=== PATIENT | female | born 1960 | race Caucasian/White ===

== ENCOUNTER 2018-11-07 11:49 | Outpatient (CLI) | payer MEDICAID, SELFPAY ==
[2018-11-07 12:23] LABS: HCT 37.1 % (36.0-46.0); HGB 12.3 g/dL (12.0-15.5); Mean Corp. HGB Concentration 33.2 g/dL (32.0-36.0); Mean Corpuscular Hemoglobin 28.2 pg (27.0-33.0); Mean Corpuscular Volume 85.1 fL (80-95); Mean Platelet Volume 9.5 fL (8.0-11.0); Platelet Count 237 x1000/uL (130-400); RBC 4.36 m/cumm (4.00-5.20); RBC Distribution Width 13.5 % (11.7-14.6); White Blood Cell Count 6.16 k/cumm (4.4-10.8)
[2018-11-07 13:07] LABS: ALT 23 U/L (12-78); AST 17 U/L (15-37); Albumin 3.2 g/dL (3.4-5.0); Alkaline Phosphatase 82 U/L (46-116); Anion Gap 6.7 mmol/L (3-11); BUN 14 mg/dL (7-18); Bilirubin, Total 0.4 mg/dL (0.2-1.0); CO2 30.3 mmol/L (21.0-32.0); CREATININE 1.12 mg/dL (0.55-1.02); Calcium 9.2 mg/dL (8.5-10.1); Chloride 102 mmol/L (98-107); Estimated GFR 50.51 (mL/min/1.73m2); Glucose 100 mg/dL (70-100); Potassium 3.9 mmol/L (3.5-5.1); Sodium 139 mmol/L (136-145); TSH (W/Ref FT4) 4.23 uIU/mL (0.358-3.74); Total Protein 6.9 g/dL (6.4-8.2)
[2018-11-07 13:35] LABS: FREE T4 1.13 ng/dL (0.76-1.46)
== END 2018-11-07 12:09 ==
PROVIDERS: PCP Family Medicine; Visit Provider Family Medicine
DX: F32.9 Major depressive disorder, single episode, unspecified (principal); M54.6 Pain in thoracic spine; G89.4 Chronic pain syndrome
CPT/HCPCS: 36415; 80053; 85027; 84439; 84443

== ENCOUNTER 2019-02-16 09:55 | Day surgery (SDC) | payer MEDICAID, SELFPAY ==
[2019-02-16 10:03] VITALS: BP 135/75; PULSE 90; RESP 18; TEMP 36.6; O2SAT 96
[2019-02-16] MEDS: Lactated Ringers 1,000 ML 80 ML IV (10:29)
[2019-02-16] MEDS: CLINDAMYCIN 600 MG/50 ML BAG 100 MG IVPB (11:33)
[2019-02-16] MEDS: Lidocaine 1% Multi-Dose 50 ML VIAL (11:54)
[2019-02-16] MEDS: Sodium Bicarbonate 50 MEQ/50 ML VIAL (11:54)
--- NOTE | 2019-02-16 12:01 | W.PM.DSUDISC ---
Discharge Plan Disposition Patient Disposition: HOME Condition: Good Discharge Details Reason For Visit: R Carpal Tunnel Syndrome Attending Provider: Christofer Cervantes Primary Care Provider: Elsie Cid Home Meds and New Rx's Prescriptions: New acetaminophen 500 mg tablet 1,000 mg PO Q8H PRN (Reason: pain) Qty: 60 RF: 3 ibuprofen 600 mg tablet 600 mg PO TID PRNQty: 30 RF: 3 Continued amitriptyline 100 mg tablet 100 mg PO HS Qty: 90 RF: 12 estradiol [Estrace] 1 mg tablet 1 mg PO DAILY Qty: 90 RF: 4 fluoxetine 20 mg capsule 20 mg PO DAILY Qty: 90 RF: 12 fluticasone propionate 50 mcg/actuation spray,suspension 2 spray NS BID PRN (Reason: allergy symptoms) Qty: 3 RF: 0 levothyroxine 150 mcg tablet 150 mcg PO DAILY Qty: 90 RF: 12 loratadine [Claritin] 10 mg tablet 10 mg PO DAILY Qty: 90 RF: 4 montelukast [Singulair] 10 mg tablet 10 mg PO DAILY Qty: 90 RF: 4 methadone 10 mg tablet 20 mg PO Q12H MDD 2 Qty: 60 RF: 0 NARCOTIC CONTRACT RF: 0 ketotifen fumarate 0.025 % (0.035 %) drops 1 drp Ophthalmic BID PRNRF: 0 Discharge Instructions Stand Alone Forms: Helen Mccann Tunnel Release, DSU Post op Instructions, Marv Hummel (DSU) Referrals: Christofer Cervantes MD [ [facility] STAFF PHYSICIAN] - Equipment/Supplies: Sling Activity:: Elevate Remove Dressings/Wound Care:: 48 hours Shower/Bathe:: 48 hours Diet:: As Tolerated Discharge Orders Discharge Orders: Discharge Order (Routine); Ordered 02/16/19 Ordered By: Christofer Cervantes DS: Diagnosis Discharge Diagnosis (1) Right carpal tunnel syndrome: Status: Acute
[2019-02-16] MEDS: Acetaminophen 325 MG TAB 650 MG PO (12:21)
[2019-02-16 12:30] VITALS: BP 109/59; PULSE 73; RESP 18; TEMP 35.9; O2SAT 100
--- NOTE | 2019-02-16 18:16 | ROE_ITS ---
Date of service: 02/16/19 Time of Service: 13:15 Operative Note DATE OF PROCEDURE: 02/16/19 PRE-OP DIAGNOSIS: Right Carpal Tunnel Syndrome POST-OP DIAGNOSIS: same PROCEDURE: Right Endoscopic Carpal Tunnel Release SURGEON: Christofer Cervantes ANESTHESIA: GETEmily ESTIMATED BLOOD LOSS: 0 PATHOLOGY: none sent TOURNIQUET TIME: 6 COMPLICATIONS: None Patient was transported to: same day Patient's condition: stable Indications: I have seen Mony in clinic for symptoms of carpal tunnel syndrome. The numbness, tingling, and pain limited function. Clinical exam findings with nerve conduction tests confirmed the diagnosis of carpal tunnel syndrome. Nonoperative measures such as bracing, time, activity modifications had been tried but disability and pain persisted. I discussed carpal tunnel release with the patient. I reviewed the risks of the procedure to include, but not limited to, bleeding, infection, pain, stiffness, incomplete release, damage to nerves or vessels, persistent numbness, recurrence. Despite these risks, the patient elected to proceed. Findings: There was tightened carpal tunnel. This was dilated and released successfully with the endoscopic with increased space within the tunnel. The antebrachial fascia was released proximally freeing the median nerve at the wrist. Procedure Description: Mony was greeted in the preoperative holding area where the correct side was identified and marked. The consent was reviewed with the patient and signed. The history and physical was updated. All questions were answered. Mony was taken back to the operating room. The patient was placed into the supine position on the operating room table with the right arm on an arm board. A nonsterile tourniquet was placed high onto the arm. All bony prominences were well padded. Prophylactic antibiotics in the form of cefazolin were administered. The right arm was then prepped with Chloraprep and draped in a standard fashion with stockinette and extremity drape. A timeout to confirm correct identity, side and site, procedure, allergies, anesthesia, and medical concerns was performed. The surgical site was marked in the volar wrist creases in line with the radial border of the fourth ray. This area was anesthetized with approximately 6cc of 1% Lidocaine. The limb was then exsanguinated with an Esmarch. The skin was incised with a 15 blade, approximately 1cm. The skin only was cut and the deeper tissue was dissected bluntly with a tenotomy scissor, avoiding passing nerve and venous structures. The fascia was penetrated and opened bluntly. A two-prong skin hook was placed under this proximal fascial edge. A series of hamate finders were used to identify and dilate the carpal tunnel. Synovial elevator was used to free synovial attachments to the underside of the transverse carpal ligament. My thumb was kept in the palm to shireen the distal extent of the carpal tunnel and correctly position the hand. The Microaire endoscope was inserted without difficulty and without resistance. Excellent visualization showed horizontally running fibers of the transverse carpal ligament (TCL). The distal extent of the TCL was visualized and the end of the scope palpated with the thumb. The blade was elevated and withdrawn from distal to proximal. The TCL was split into two flaps. The endoscope was reinserted to confirm complete release and any remnant ligament was incised. The scope was withdrawn and the proximal aspect of the carpal tunnel was grossly inspected and appeared release with the median nerve visible. The antebrachial fascia at the level of the wrist was then freed from the overlying skin and then the underlying median nerve with blunt dissection. This was transected longitudinally for about 3cm proximal to the wrist incision. The wound was then irrigated with easy flow of irrigant distally and proximally. The incision was closed with a single 4-0 Nylon suture. The wound was dressed with Xeroform, Gauze, Kerlix and Deondre. The tourniquet was deflated with the initial dressing and held with some pressure. Blood flow returned easily to all digits with capillary refill less than 2 seconds. The patient tolerated the procedure well and was returned to the Same Day Surgery area in a stable cond ition suffering no known complication.
== END 2019-02-16 12:44 | disposition home or self-care (01) ==
PROVIDERS: PCP Family Medicine; Visit Provider Student in an Organized Health Care Education/Training Program
PROC: 01N54ZZ Release Median Nerve, Percutaneous Endoscopic Approach (ICD-10-PCS; CPT 29848; principal; 2019-02-16 12:15)
DX: G56.01 Carpal tunnel syndrome, right upper limb (principal)
CPT/HCPCS: 29848; J1885; J2405

== ENCOUNTER 2019-03-07 08:26 | Day surgery (SDC) | payer MEDICAID, SELFPAY ==
[2019-03-07 08:40] VITALS: BP 126/77; PULSE 83; RESP 16; TEMP 36.9; O2SAT 97
[2019-03-07] MEDS: Lactated Ringers 1,000 ML 80 ML IV (09:02)
[2019-03-07] MEDS: CLINDAMYCIN 600 MG/50 ML BAG 100 MG IVPB (09:48)
[2019-03-07] MEDS: Lidocaine 1% Multi-Dose 50 ML VIAL (09:56)
[2019-03-07] MEDS: Sodium Bicarbonate 50 MEQ/50 ML VIAL (09:56)
--- NOTE | 2019-03-07 10:12 | W.PM.DSUDISC ---
Discharge Plan Disposition Patient Disposition: HOME Condition: Good Discharge Details Reason For Visit: Left Carpal Tunnel Attending Provider: Christofer Cervantes Primary Care Provider: Elsie Cid Home Meds and New Rx's Prescriptions: Continued amitriptyline 100 mg tablet 100 mg PO HS Qty: 90 RF: 12 estradiol [Estrace] 1 mg tablet 1 mg PO DAILY Qty: 90 RF: 4 fluoxetine 20 mg capsule 20 mg PO DAILY Qty: 90 RF: 12 fluticasone propionate 50 mcg/actuation spray,suspension 2 spray NS BID PRN (Reason: allergy symptoms) Qty: 3 RF: 0 levothyroxine 150 mcg tablet 150 mcg PO DAILY Qty: 90 RF: 12 loratadine [Claritin] 10 mg tablet 10 mg PO DAILY Qty: 90 RF: 4 montelukast [Singulair] 10 mg tablet 10 mg PO DAILY Qty: 90 RF: 4 methadone 10 mg tablet 20 mg PO Q12H MDD 2 Qty: 60 RF: 0 NARCOTIC CONTRACT RF: 0 ketotifen fumarate 0.025 % (0.035 %) drops 1 drp Ophthalmic BID PRNRF: 0 acetaminophen 500 mg tablet 1,000 mg PO Q8H PRN (Reason: pain) Qty: 60 RF: 3 ibuprofen 600 mg tablet 600 mg PO TID PRNQty: 30 RF: 3 Discharge Instructions Stand Alone Forms: Helen Mccann Tunnel Release, DSU Post op Instructions, Marv Hummel (DSU) Referrals: Christofer Cervantes MD [ [facility] STAFF PHYSICIAN] - Activity:: Elevate Remove Dressings/Wound Care:: 48 hours Shower/Bathe:: 48 hours Diet:: As Tolerated Discharge Orders Discharge Orders: Discharge Order (Routine); Ordered 03/07/19 Ordered By: Christofer Cervantes DS: Diagnosis Discharge Diagnosis (1) Left carpal tunnel syndrome: Status: Acute
--- NOTE | 2019-03-07 10:50 | ROE_ITS ---
Date of service: 03/07/19 Time of Service: 10:48 Operative Note DATE OF PROCEDURE: 03/07/19 PRE-OP DIAGNOSIS: Left Carpal Tunnel Syndrome POST-OP DIAGNOSIS: same PROCEDURE: Left Endoscopic Carpal Tunnel Release SURGEON: Christofer Cervantes ANESTHESIA: MAC ESTIMATED BLOOD LOSS: 0 PATHOLOGY: none sent TOURNIQUET TIME: 6 COMPLICATIONS: None Patient was transported to: same day Patient's condition: stable Indications: I have seen Mony in clinic for symptoms of carpal tunnel syndrome. The numbness, tingling, and pain limited function. Clinical exam findings with nerve conduction tests confirmed the diagnosis of carpal tunnel syndrome. Nonoperative measures such as bracing, time, activity modifications had been tried but disability and pain persisted. She previously had the right side release and was doing well except for some residual numbness at the tip of the index finger. I discussed carpal tunnel release with the patient. I reviewed the risks of the procedure to include, but not limited to, bleeding, infection, pain, stiffness, incomplete release, damage to nerves or vessels, persistent numbness, recurrence. Despite these risks, the patient elected to proceed. Findings: There was tightened carpal tunnel. This was dilated and released successfully with the endoscopic with increased space within the tunnel. The antebrachial fascia was released proximally freeing the median nerve at the wrist. Procedure Description: Mony was greeted in the preoperative holding area where the correct side was identified and marked. The consent was reviewed with the patient and signed. The history and physical was updated. All questions were answered. Mony was taken back to the operating room. The patient was placed into the supine position on the operating room table with the left arm on an arm board. A nonsterile tourniquet was placed high onto the arm. All bony prominences were well padded. Prophylactic antibiotics in the form of clindamycin were administered. The left arm was then prepped with Chloraprep and draped in a standard fashion with stockinette and extremity drape. A timeout to confirm correct identity, side and site, procedure, allergies, anesthesia, and medical concerns was performed. The surgical site was marked in the volar wrist creases in line with the radial border of the fourth ray. This area was anesthetized with approximately 6cc of 1% Lidocaine. The limb was then exsanguinated with an Esmarch. The skin was incised with a 15 blade, approximately 1cm. The skin only was cut and the deeper tissue was dissected bluntly with a tenotomy scissor, avoiding passing nerve and venous structures. The fascia was penetrated and opened bluntly. A two-prong skin hook was placed under this proximal fascial edge. A series of hamate finders were used to identify and dilate the carpal tunnel. Synovial elevator was used to free synovial attachments to the underside of the transverse carpal ligament. My thumb was kept in the palm to shireen the distal extent of the carpal tunnel and correctly position the hand. The Microaire endoscope was inserted without difficulty and without resistance. Excellent visualization showed horizontally running fibers of the transverse carpal ligament (TCL). The distal extent of the TCL was visualized and the end of the scope palpated with the thumb. The blade was elevated and withdrawn from distal to proximal. The TCL was split into two flaps. The endoscope was wade nserted to confirm complete release and any remnant ligament was incised. The scope was withdrawn and the proximal aspect of the carpal tunnel was grossly inspected and appeared release with the median nerve visible. The antebrachial fascia at the level of the wrist was then freed from the overlying skin and then the underlying median nerve with blunt dissection. This was transected longitudinally for about 3cm proximal to the wrist incision. The wound was then irrigated with easy flow of irrigant distally and proximally. The incision was closed with a single 4-0 Nylon suture. The wound was dressed with Xeroform, Gauze, Kerlix and Deondre. The tourniquet was deflated with the initial dressing and held with some pressure. Blood flow returned easily to all digits with capillary refill less than 2 seconds. The patient tolerated the procedure well and was returned to the Same Day Surgery area in a stable condition suffering no known complication.
[2019-03-07 11:01] VITALS: BP 106/61; PULSE 83; RESP 16; TEMP 36.1; O2SAT 97
== END 2019-03-07 11:20 | disposition home or self-care (01) ==
PROVIDERS: PCP Family Medicine; Visit Provider Student in an Organized Health Care Education/Training Program
PROC: 01N54ZZ Release Median Nerve, Percutaneous Endoscopic Approach (ICD-10-PCS; CPT 29848; principal; 2019-03-07 10:15)
DX: G56.02 Carpal tunnel syndrome, left upper limb (principal)
CPT/HCPCS: 29848; J1885

== ENCOUNTER 2019-05-08 13:52 | Outpatient (CLI) | payer MEDICAID, SELFPAY ==
--- NOTE | 2019-05-08 09:05 | DI.RAD_ITS ---
SYMPTOM/DIAGNOSIS: RT SHOULDER PAIN RIGHT SHOULDER: 05/08 Three views were obtained. There is moderate hypertrophic degenerative changes of the acromioclavicular joint. There are also marginal osteophytes of the glenoid and to a lesser extent the humeral head. Cartilaginous joint space of the glenohumeral joint appears fairly well maintained. 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
== END 2019-05-08 14:12 ==
PROVIDERS: PCP Family Medicine; Visit Provider Physician Assistant
DX: M25.511 Pain in right shoulder (principal); M19.011 Primary osteoarthritis, right shoulder
CPT/HCPCS: 73030

== ENCOUNTER 2020-05-06 00:27 | Outpatient (CLI) | payer MEDICAID, SELFPAY ==
--- NOTE | 2020-05-06 | DI.MAMMO_ITS ---
EXAM: MAMMO SCREENING CLINICAL HISTORY: SCREENING, Z12.39 TECHNIQUE: Mammograms were interpreted according to the usual protocol including computer analysis w [employer] CAD system, tomosynthesis and C-view imaging. COMPARISON: 2009 through 2016 FINDINGS: The breasts are composed of mainly fatty density , Breast Density category A. No suspicious masses or suspicious microcalcifications are seen. No skin thickening or abnormal axillary lymph nodes are seen. There has been no significant change from prior exams. IMPRESSION: BI-RADS Category 1, negative. Yearly screening mammography is recommended. Breast Density Category A, fatty density.
== END 2020-05-06 00:47 ==
PROVIDERS: PCP Family Medicine; Visit Provider Family Medicine
DX: Z12.31 Encounter for screening mammogram for malignant neoplasm of breast (principal)
CPT/HCPCS: 77063; 77067

== ENCOUNTER 2020-08-26 18:31 | Outpatient (REF) | payer MEDICAID, SELFPAY ==
[2020-08-26 14:27] LABS: *AMPHETAMINES SCREEN URINE Negative (Negative); *BARBITURATES SCREEN URINE Negative (Negative); *BENZODIAZEPINES SCREEN URINE Negative (Negative); Cannabinoids THC Negative (Negative); Cocaine Screen,Urine Negative (Negative); METHADONE URINE SCREEN Negative (Negative); OPIATES URINE SCREEN Negative (Negative)
[2020-08-26 14:31] LABS: Tricyclic Antidepressants POSITIVE (Negative)
== END 2020-08-26 18:51 ==
LOC: LBN 18:31
PROVIDERS: PCP Family Medicine; Visit Provider Family Medicine
DX: G89.4 Chronic pain syndrome (principal)
CPT/HCPCS: 80307

== ENCOUNTER 2020-08-27 02:40 | Outpatient (CLI) | payer MEDICAID, SELFPAY ==
[2020-08-27 13:41] LABS: Hemoglobin A1C 5.6 % (<5.7)
[2020-08-27 14:22] LABS: ALT 30 U/L (14-59); AST 17 U/L (15-37); Albumin 3.5 g/dL (3.4-5.0); Alkaline Phosphatase 88 U/L (46-116); Anion Gap 6.2 mmol/L (3-11); BUN 16 mg/dL (7-18); Bilirubin, Total 0.5 mg/dL (0.2-1.0); CO2 29.8 mmol/L (21.0-32.0); CREATININE 1.22 mg/dL (0.55-1.02); Calculated LDL 113 mg/dL (<100); Chloride 102 mmol/L (98-107); Cholesterol 177 mg/dL (<200); Estimated GFR 45.43 (mL/min/1.73m2); Glucose 106 mg/dL (74-106); HDL Cholesterol 38 mg/dL (40-60); Potassium 3.7 mmol/L (3.5-5.1); Sodium 138 mmol/L (136-145); TSH (W/Ref FT4) 11.06 uIU/mL (0.36-3.74); Total Protein 6.7 g/dL (6.4-8.2); Triglyceride 133 mg/dL (<150)
[2020-08-27 14:42] LABS: FREE T4 0.68 ng/dL (0.76-1.46)
[2020-09-03 12:12] LABS: Hepatitis C Ab w Rflx HCV PCR Negative (Negative)
== END 2020-08-27 03:00 ==
PROVIDERS: PCP Family Medicine; Visit Provider Family Medicine
DX: E11.9 Type 2 diabetes mellitus without complications (principal); E03.9 Hypothyroidism, unspecified; J45.909 Unspecified asthma, uncomplicated; G89.4 Chronic pain syndrome; Z68.38 Body mass index [BMI] 38.0-38.9, adult; Z00.00 Encounter for general adult medical examination without abnormal findings
CPT/HCPCS: 36415; 80053; 80061; 86803; 83036; 84439; 84443

== ENCOUNTER 2020-10-02 11:58 | Outpatient (CLI) | payer MEDICAID, SELFPAY ==
--- NOTE | 2020-10-02 14:45 | DI.CT_ITS ---
EXAM: CT HEAD WO CLINICAL HISTORY: 5 days of constant headache, R51.9. TECHNIQUE: Imaging Protocol: Axial computed tomography images with coronal and sagittal reformatted images were created and reviewed COMPARISON: No exams were available for comparison FINDINGS: The ventricular system is normal in appearance. No evidence of acute intracranial hemorrhage, mass effect, or midline shift. The orbital structures are unremarkable. The temporal bone structures appear intact. Calvarium: Normal. Visualized Paranasal sinuses/Mastoids: Clear. IMPRESSION: Normal cranial CT. RADIATION DOSE DELIVERED: 815.02mGy.cm Total DLP 815.02mGy.cm Total DLP DATA REPOSITORY: All CT scans at this facility are submitted to the National Radiology Data Registry (NRDR) Dose Index Registry (DIR) with the [employer] (ACR). RADIATION OPTIMIZATION: All CT scans at this facility use at least one of these dose optimization te chniques: automated exposure control; mA and/or kV adjustment per patient size (includes targeted exa ms where dose is matched to clinical indication); or iterative reconstruction.
== END 2020-10-02 12:18 ==
PROVIDERS: PCP Family Medicine; Visit Provider Family Medicine
DX: R51.9 Headache, unspecified (principal)
CPT/HCPCS: 70450

== ENCOUNTER 2021-02-24 09:31 | Outpatient (CLI) | payer MEDICAID, SELFPAY ==
--- NOTE | 2021-02-24 11:30 | DI.RAD_ITS ---
EXAM: XR SHOULDER LT COMPLETE 2+V CLINICAL HISTORY: l shoulder pain M25.512. TECHNIQUE: 2D digital imaging was performed. COMPARISON: May 2019 x-rays FINDINGS: There is no evidence of fracture nor dislocation. No calcifications in the soft tissues and the suba cromial space is not diminished. AC joint exhibits minimal degenerative changes. IMPRESSION: No significant radiographic findings DATA REPOSITORY: RADIATION DOSE DELIVERED:
== END 2021-02-24 09:51 ==
PROVIDERS: PCP Family Medicine; Visit Provider Family Medicine
DX: M25.512 Pain in left shoulder (principal)
CPT/HCPCS: 73030

== ENCOUNTER 2021-08-01 00:45 | Outpatient (CLI) | payer MEDICAID, SELFPAY ==
[2021-08-01 13:00] LABS: ALT 18 U/L (14-59); AST 19 U/L (15-37); Albumin 3.5 g/dL (3.4-5.0); Alkaline Phosphatase 88 U/L (46-116); Anion Gap 6.5 mmol/L (3-11); BUN 22 mg/dL (7-18); Bilirubin, Total 0.5 mg/dL (0.2-1.0); CO2 31.5 mmol/L (21.0-32.0); CREATININE 1.2 mg/dL (0.55-1.02); Calcium 9.2 mg/dL (8.5-10.1); Chloride 104 mmol/L (98-107); Estimated GFR 46.14 (mL/min/1.73m2); Glucose 101 mg/dL (74-106); Potassium 3.6 mmol/L (3.5-5.1); Sodium 142 mmol/L (136-145); TSH (W/Ref FT4) 5.31 uIU/mL (0.36-3.74); Total Protein 6.9 g/dL (6.4-8.2)
[2021-08-01 13:18] LABS: FREE T4 0.83 ng/dL (0.76-1.46)
== END 2021-08-01 00:46 | disposition home or self-care (01) ==
LOC: LOS 00:45
PROVIDERS: PCP Family Medicine; Visit Provider Family Medicine
DX: E03.9 Hypothyroidism, unspecified; N28.9 Disorder of kidney and ureter, unspecified
CPT/HCPCS: 36415; 80053; 84439; 84443

== ENCOUNTER 2021-11-25 15:52 | Inpatient (IN) | payer MEDICAID, SELFPAY ==
[2021-11-25 16:00] VITALS: BP 158/98; PULSE 106; RESP 14; TEMP 36.3; O2SAT 96
--- NOTE | 2021-11-25 16:15 | DI.CT_ITS ---
Exam(s) CT ABDOMEN PELVIS W EXAM: CT ABDOMEN PELVIS W CLINICAL HISTORY: RLQ pain, acute in onset. TECHNIQUE: Imaging Protocol: Axial computed tomography images with coronal and sagittal reformatted images were created and reviewed CONTRAST MATERIAL: Intravenous: Omnipaque 100cc Oral: None COMPARISON: No exams were available for comparison FINDINGS: VISUALIZED LUNG BASES: No nodules nor pleural effusions evident. ABDOMEN: There is no ascites. LIVER: There are no focal hepatic lesions evident . GALLBLADDER/BILIARY: Gallbladder surgically absent. Mild prominence of the biliary tree noted second gayatri to post cholecystectomy status. PANCREAS: No evidence of pancreatic mass nor dilatation of the pancreatic duct. SPLEEN: Spleen size is upper normal. No intrasplenic lesions. Splenic and portal veins are patent. ADRENALS: There are no significant adrenal masses. KIDNEYS:No cysts evident. No solid renal masses. No calculi nor hydronephrosis.. ABDOMINAL AORTA: Abdominal aorta is not enlarged. LYMPH NODES:There is no retroperitoneal nor paraaortic adenopathy. ABDOMINAL WALL: No evidence of significant anterior abdominal wall nor inguinal hernia. GI: No bowel obstruction. No free air. PELVIS: GI: Appendix diameter is 9 millimeters. There is some air remaining and part of the appendix. There is very minimal periappendiceal streaking. There is no appendicular lith. No evidence of rupture. No abscess. No fluid in the dependent aspect of the pelvis. LYMPH NODES: There is no intrapelvic nor inguinal adenopathy. REPRODUCTIVE: Uterus is surgically absent. No abnormal adnexal masses. No free fluid in the pelvis. URINARY BLADDER: No calculi nor obvious masses evident OSSEOUS: No significant osseous lesions. Disc space narrowing L5-S1. Mild degenerative anterolisthesis L4 upon L5. IMPRESSION: 1. Findings are consistent early appendicitis. No evidence of rupture. RADIATION DOSE DELIVERED: 1,347.73mGy.cm Total DLP DATA REPOSITORY: All CT scans at this facility are submitted to the National Radiology Data Registry (NRDR) Dose Index Registry (DIR) with the [employer] (ACR). RADIATION OPTIMIZATION: All CT scans at this facility use at least one of these dose optimization te chniques: automated exposure control; mA and/or kV adjustment per patient size (includes targeted exa ms where dose is matched to clinical indication); or iterative reconstruction.
--- NOTE | 2021-11-25 16:15 | RT.EKG_ITS ---
APPROVED REPORT Exam: Resting ECG Reason for Exam: abdominal pain Patient Location: E HR:84 bpm ECG Measurements Heart Rate 84 AXIS GA 184 P 16 QRSd 105 QRS 70 QT 395 T 39 QTc 467 Conclusion Sinus rhythm...normal P axis, V-rate 60- 99
[2021-11-25] MEDS: MORPHine 4 MG/ML SYR (16:25)
[2021-11-25] MEDS: Ondansetron 4 MG/2 ML VIAL IVP (16:26)
[2021-11-25] MEDS: MORPHine 10 MG/ML VIAL 2 MG IVP (16:31)
[2021-11-25] MEDS: Normal Saline 1,000 ML 1000 ML IV (16:34)
[2021-11-25] MEDS: HYDROmorphone 2 MG/ML VIAL 1 MG IVP ×2 (16:53→17:57)
[2021-11-25 17:03] LABS: ALT 21 U/L (14-59); AST 20 U/L (15-37); Albumin 3.9 g/dL (3.4-5.0); Alkaline Phosphatase 84 U/L (46-116); Anion Gap 10.3 mmol/L (3-11); BUN 15 mg/dL (7-18); Bilirubin, Total 0.5 mg/dL (0.2-1.0); CO2 25.7 mmol/L (21.0-32.0); CREATININE 1.3 mg/dL (0.55-1.02); Calcium 9.3 mg/dL (8.5-10.1); Chloride 103 mmol/L (98-107); Estimated GFR 42.07 (mL/min/1.73m2); Glucose 124 mg/dL (74-106); Lipase 121 U/L (73-393); Potassium 3.7 mmol/L (3.5-5.1); Sodium 139 mmol/L (136-145); Total Protein 7.9 g/dL (6.4-8.2)
[2021-11-25] MEDS: Omnipaque 350 MG/ML 100 ML BTL IV (17:22)
[2021-11-25] MEDS: Normal Saline Flush 10 ML SYR IVP (17:25)
[2021-11-25 17:29] LABS: Abs Immature Grans 0.02 10^3/uL (0.0-0.06); Absolute Basophil Count 0.08 10^3/uL (0.0-0.2); Absolute Eosinophil Count 0.15 10^3/uL (0.0-0.7); Absolute Monocyte Count 0.58 10^3/uL (0.1-0.8); Absolute Neutrophil Count 3.94 10^3/uL (1.2-6.7); Eosinophils % 1.9; HCT 43.6 % (36.0-46.0); HGB 14.6 g/dL (11.2-15.7); Immature Grans % 0.3; Lymphocytes % 39.4; MCH 29.8 pg (27.0-33.0); MCHC 33.5 % (32.0-36.0); MPV 10.3 fL (8.0-11.0); Monocytes % 7.4; Nucleated RBC 0 %; Platelet Count 269 10^3/uL (130-400); RDW 12.7 % (11.7-14.6); RDW-SD 41.5 fL; WBC 7.87 10^3/uL (4.4-10.8)
--- NOTE | 2021-11-25 17:46 | DI.VRAD_ITS ---
PROCEDURE INFORMATION: Exam: CT Abdomen And Pelvis With Contrast Exam date and time: 11/25/2021 4:24 PM Age: 60 years old Clinical indication: Other: Rlq pain, acute in onset; Prior surgery; Surgery date: 6+ months; Surgery type: x 2 TECHNIQUE: Imaging protocol: Computed tomography of the abdomen and pelvis with contrast. Total images: 1334 Contrast material: OMNIPAQUE 350; Contrast volume: 100 ml; Contrast route: INTRAVENOUS (IV); COMPARISON: US ABDOMEN ULTRASOUND (P) 06/24/2015 3:33 PM FINDINGS: Liver: Normal. No mass. Gallbladder and bile ducts: The gallbladder is surgically absent. No intra or extrahepatic biliary ductal dilatation. Pancreas: Normal. No ductal dilation. Spleen: Normal. No splenomegaly. Adrenal glands: Normal. No mass. Kidneys and ureters: Normal. No hydronephrosis. Stomach and bowel: Unremarkable. No obstruction. No mucosal thickening. Appendix: The appendix is dilated to 1.0 cm in diameter (series 5, image 593) with periappendiceal inflammatory fat stranding. Intraperitoneal space: No free air. No significant fluid collection. Vasculature: Atherosclerosis. No abdominal aortic aneurysm. Lymph nodes: Unremarkable. No enlarged lymph nodes. Urinary bladder: Unremarkable as visualized. Reproductive: Unremarkable as visualized. Bones/joints: Degenerative changes in the lumbar spine. No acute fracture. Soft tissues: Unremarkable. IMPRESSION: Acute uncomplicated appendicitis. THIS REPORT CONTAINS FINDINGS THAT MAY BE CRITICAL TO PATIENT CARE. The findings were verbally communicated by me to Annalee Leahy via telephone conference at 5:44 PM EST on 11/25/2021. The findings were acknowledged and understood. Dictated and Authenticated by: Luciana Salter MD. Ordering:JOSE Mantilla MD
[2021-11-25 18:06] LABS: Source Nasal/Nares
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
[2021-11-25 18:11] LABS: Bilirubin Negative (Negative); Blood Trace-intact (Negative); Clarity Cloudy (Clear); Glucose Negative (Negative); Ketones Negative (Negative); Leukocyte Esterase Negative (Negative); Nitrite Negative (Negative); Specific Gravity 1.015 (1.005-1.025); pH 6.5 (5-8)
[2021-11-25 18:19] LABS: Bacteria Packed HPF (Negative); C & S Indicated? No/Sq. Contamination; Epithelial Cells Many HPF (Negative)
[2021-11-25 18:45] LABS: COVID-19 PCR Negative (Negative)
[2021-11-25] MEDS: levoFLOXacin 750 MG/150 ML BAG 100 MG IVPB (19:17)
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
[2021-11-25] MEDS: HYDROmorphone 2 MG/ML VIAL IVP (19:38)
--- NOTE | 2021-11-25 20:08 | W.PM.OP ---
Date of service: 11/25/21 Time of Service: 20:08 Operative Note Operative Note DATE OF PROCEDURE: 11/25/21 PRE-OP DIAGNOSIS: acute appendictis POST-OP DIAGNOSIS: other (Lysis of adhesion) PROCEDURE: lap appy SURGEON: Sam Guerrero HARVESTING SUPERVISOR: Adrian Cotton ANESTHESIA TYPE: Local By Surgeon and General LMA/ETT Refer to Anesthesia Record ESTIMATED BLOOD LOSS: 100 PATHOLOGY: other Patient was transported to: PACU Patient's condition: stable Procedure Description: INDICATIONS: The patient has signs and symptoms compatible with acute appendicitis and is brought to the OR for laparoscopic appendectomy, possible open procedure. Informed consent is obtained for the procedural (explained in simple layman's terms that the pt and/or family could understand) explaining risks vs benefits and alternatives to the procedure and consequences if we do not do the procedure. Risks include but are not limited to:bleeding,infections, pneumonia, blood clots/DVT/PE, anesthesia(aspiration, damage to teeth/airway/CO/CVA//prolonged mechanical ventilation/PTX/IV infections), damage to bowel, bladder,blood vessels, ureters. Damage to solid organs requiring removal. Infertility. Leakage from anastomosis requiring colostomy. Wound infections requirng further surgery. Scarring and disfigurement. Subsequent bowel obstructions from scar tissue. Possible open procedure if minimaly invsive procedure is being attempted. Abscess and stump appendicitis as well as others. DESCRIPTION OF PROCEDURE: The patient was brought to the operating room suite and placed in supine position. Anesthesia was administered per the Department of Anesthesia. A Bundy catheter and OG tube are placed. The patient was prepped and draped in the usual sterile fashion using ChloraPrep scrub solution. Pause for the cause was done. 30 mL of 1% buffered was used for local anesthetization. Mony has had multiple laparoscopic surgeries done before. A cutdown is done at the umbilicus in the standard fashion. The fascia is grabbed with Mary's and 0 Vicryl sutures are placed as stay sutures. A finger is placed into the abdomen. She does have dense adhesions up to the anterior abdominal wall. A pocket is created. and a Hussan port is placed. Insufflation is begun. Camera inserted through the port shows no damage to underlying structures. Bowel, liver and stomach that are visualized are normal in appearance. She has dense adhesions from the omentum and from the left colon up to the anterior abdominal wall. Adhesions are bluntly taken down. Clips are used for hemostasis. Less than 30 minutes is spent lysing adhesions. She actually does not seem to have a significant mount of adhesions into the pelvis. I do not see any endometrial implant the appendix is inflamed, erythematous,enlarged, & distened, but does not appear to have been ruptured. There is no purulent drainage in the pelvis. A 12 mm port was then placed in the suprapubic position under direct visualization following creation of a local field block as well as a second 5 mm port in the LLQ. The appendix is extremely retrocecal. The white line of Toldt is taken down. The appendix is doubled back and adhered down into the pelvis and onto the mesentery. I did get some bleeding with attempting to free up the tip of the appendix from the mesentery. Clips were used to aid in hemostasis. The appendix is elevated and a rent dissected into the mesentery. The base of the appendix is healthy and will hold gladis. A Endo-MARCUS stapler is placed across the base of the appendix and fired and 2nd stapler placed across the mesentery and fired. The appendix is placed in a bag and brought out. There was just some generalized oozing along the right gutter the mesentery after the appendix was removed. No discrete bleeder could be identified. FloSeal was placed for hemostasis. There is no bleeding or enteric leakage from the staple lines. The pt does not require a drain. The abdomen was copiously irrigated with a liter of saline. All saline is evacuated. The scope and ports are removed. Pneumoperitoneum is evacuated. The fascia under the 12 mm port is closed with 0 Vicryl. The fascia under the umbilical cutdown is closed with 0 Vicryl in interrupted fashion. There was no bleeding from the port sites as when they removed and the pneumoperitoneum evacuated. The wounds were copiously irrigated and closed in 2 layers with 4-0 Monocryl. Skin glue is used. Sterile dressings are applied. The patient tolerated the procedure without complication, transferred to the recovery room in stable condition. SAM GUERRERO, DO
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
[2021-11-25 21:11] VITALS: BMI 39.4
[2021-11-25] MEDS: Lactated Ringers 1,000 ML 125 ML IV (21:14)
--- NOTE | 2021-11-25 22:23 | APP_PTH ---
PATIENT: Mony Parker LOC: U#:[id number] AGE/SX: 60/F ROOM: 214 RE11/25/[address]: Guera Gaviria : 1960 BED: A DIS: 11/26/2021 SPEC #: [id number] RECD: 11/26/21 12:02 STATUS: LACI REAlbin #: [id number] TIARA: 11/25/21 22:[address]: Guera Gaviria DEPT: Surgical Specimen RECD BY: Annalee Johnson ENTERED: 11/26/21 12:03 SP TYPE: Appendix OTHR DR: Elsie Cid MD, DC Tissues: 1 - APPENDIX NOT INCIDENTAL Procedures: GROSS AND MICRO LEVEL 3 Comments: [id number]
[2021-11-25] MEDS: Bupivacaine 0.25% Pres-Free 30 ML VIAL (22:42)
[2021-11-25] MEDS: Bupivacaine LIPOSOME/PF 133 MG/10 ML VIAL IJ (23:20)
[2021-11-25 23:46] VITALS: BP 146/76; PULSE 90; RESP 10; TEMP 36.4; O2SAT 96
[2021-11-25 23:51] VITALS: BP 109/73; PULSE 93; RESP 12; TEMP 36.4; O2SAT 94
[2021-11-25 23:56] VITALS: BP 116/81; PULSE 90; RESP 10; TEMP 36.6; O2SAT 98
[2021-11-25] MEDS: fentaNYL 100 MCG/2 ML VIAL IVP (23:56)
[2021-11-26] VITALS (13 sets, daily range): BP systolic 99–118; BP diastolic 62–75; PULSE 70–87; RESP 10–18; TEMP 35.6–37.3; O2SAT 88–98
[2021-11-26] MEDS: fentaNYL 100 MCG/2 ML VIAL IVP (00:04)
--- NOTE | 2021-11-26 00:14 | W.ANESPOSTOP ---
Postoperative Evaluation Date, Time and Location Date Performed: 11/26/21 Time Performed: 00:15 Patient Location: PACU Vital Signs Most Recent Imported Vital Signs: Most Recent Vital Signs Temp Pulse Resp BP Pulse Ox 36.6 C 79 10 L 106/72 95 11/26/21 00:11 11/26/21 00:11 11/26/21 00:11 11/26/21 00:11 11/26/21 00:11 Pain Score Most Recent Pain Score: Most Recent Pain Score Pain Level 4 11/26/21 00:11 Assessment Mental Status: Awake (Alert & Oriented to Patient Baseline) Airway and Respiratory Function: Patent airway with normal (patient baseline) respiratory exam Cardiovascular Function: Hemodynamically Stable Hydration Status: Adequately Hydrated Nausea & Vomiting: No Nausea or Vomiting Pain: Pain is tolerable per patient Peripheral Nerve Block: Patient did not receive a nerve block
[2021-11-26] MEDS: Lactated Ringers 1,000 ML 125 ML IV ×2 (01:56→08:15)
[2021-11-26] MEDS: ACETAMINOPHEN 1,000 MG/100 ML BTL 400 MG IVPB ×2 (04:36→10:52)
[2021-11-26 07:16] LABS: Abs Immature Grans 0.01 10^3/uL (0.0-0.06); Absolute Basophil Count 0.04 10^3/uL (0.0-0.2); Absolute Eosinophil Count 0.03 10^3/uL (0.0-0.7); Absolute Lymphocyte Count 1.63 10^3/uL (1.2-3.4); Absolute Monocyte Count 0.65 10^3/uL (0.1-0.8); Absolute Neutrophil Count 6.91 10^3/uL (1.2-6.7); Basophils % 0.4; Eosinophils % 0.3; HCT 35.8 % (36.0-46.0); HGB 11.7 g/dL (11.2-15.7); Immature Grans % 0.1; Lymphocytes % 17.6; MCH 29.8 pg (27.0-33.0); MCHC 32.7 % (32.0-36.0); MCV 91.3 fL (80-95); MPV 9.7 fL (8.0-11.0); Neutrophils % 74.6; Nucleated RBC 0 %; Platelet Count 195 10^3/uL (130-400); RBC 3.92 10^6/uL (3.93-5.22); RDW 13.1 % (11.7-14.6); RDW-SD 43.2 fL; WBC 9.27 10^3/uL (4.4-10.8)
--- NOTE | 2021-11-26 07:16 | W.PM.PROGNOT ---
Date of Service Date of service: 11/26/21 Time of Service: 07:16 Assessment and Plan Assessment and plan (1) BMI 38.0-38.9,adult: Status: Acute (2) Hypothyroidism: Status: Chronic (3) Chronic pain syndrome: Status: Chronic (4) Asthma: Status: Chronic (5) Anxiety: Status: Chronic (6) MIGUEL ANGEL (obstructive sleep apnea): (7) Acute appendicitis: Status: Acute Assessment and plan: POD#1 s/p laparoscopic Appendectomy DIET- Post-op diet will start with breakfast PAIN- currently well controlled Incision sites- Midline Inferior port site moderate amount of erythema. No tender, no induration. Will observe this area closely. ? sign of infection vs. ecchymosis Strongly encouraged activity OOB. Sitting in chair for meals and throughout the day and walking AM Labs Pending Await to see how she tolerates post-op diet and AM labs. Possible d/c home Subjective Subjective Interval history since last seen: Patient reports that her pain is significantly improved, compared to yesterday. She states that she did not sleep last night, she was frequently woken up by ns staff. Exam Const General: cooperative, healthy appearing and comfortable Orientation: alert and oriented x3 Resp Effort & Inspection: normal respiratory effort, no audible wheezes and no cough GI Palpation: soft and tender (localized around port sites ) Other: Midline Inferior port site- Moderate amount of erythema localized to this port site, also ecchymosis noted. No induration or drainage noted. Objective Last Vital Signs Temp 36.4 C L 11/26/21 04:35 Pulse 74 11/26/21 04:35 Resp 16 11/26/21 04:35 BP 103/74 11/26/21 04:35 Pulse Ox 96 11/26/21 04:35 Laboratory Results - last 24 hr 11/25/21 11/25/21 11/25/21 16:05 16:05 17:55 WBC 7.87 RBC 4.90 Hgb 14.6 Hct 43.6 MCV 89.0 MCH 29.8 MCHC 33.5 RDW 12.7 Plt Count 269 MPV 10.3 Abs Immat Gran (auto) Immature Gran % 0.3 Neutrophils % 50.0 Band Neutrophils % Lymphocytes % 39.4 Atypical Lymphs % Monocytes % 7.4 Eosinophils % 1.9 Basophils % 1.0 Metamyelocytes % Myelocytes % Promyelocytes % Other Cells % Nucleated RBC % 0 Absolute Neutrophils 3.94 Absolute Lymphocytes 3.10 Absolute Monocytes 0.58 Absolute Eosinophils 0.15 Absolute Basophils 0.08 RBC Morphology Polychromasia Hypochromasia Poikilocytosis Basophilic Stippling Anisocytosis Microcytosis Macrocytosis Spherocytes Tear Drop Cells Ovalocytes Stomatocytes [place] Bodies [place] Cells/Echinocytes Acanthocytes (Spur) Schistocytes Sodium 139 Potassium 3.7 Chloride 103 Carbon Dioxide 25.7 Anion Gap 10.3 BUN 15 Creatinine 1.3 H Estimated GFR/1.73 m2 42.07 Glucose 124 H Calcium 9.3 Total Bilirubin 0.5 AST 20 ALT 21 Alkaline Phosphatase 84 Total Protein 7.9 Albumin 3.9 Lipase 121 Urine Color Urine Clarity Urine pH Ur Specific [place] Urine Protein Urine Ketones Urine Blood Urine Nitrite Urine Bilirubin Urine Urobilinogen Ur Leukocyte Esterase Urine RBC Urine WBC Ur Epithelial Cells Urine Crystals Urine Bacteria Urine Mucus Ur Culture Indicated? Urine Glucose COVID-19 Source Nasal/Nares SARS-CoV-2 (PCR) Negative 11/25/21 11/26/21 18:02 05:35 WBC Cancelled RBC Cancelled Hgb Cancelled Hct Cancelled MCV Cancelled MCH Cancelled MCHC Cancelled RDW Cancelled Plt Count Cancelled MPV Cancelled Abs Immat Gran (auto) Cancelled Immature Gran % Cancelled Neutrophils % Cancelled Band Neutrophils % Cancelled Lymphocytes % Cancelled Atypical Lymphs % Cancelled Monocytes % Cancelled Eosinophils % Cancelled Basophils % Cancelled Metamyelocytes % Cancelled Myelocytes % Cancelled Promyelocytes % Cancelled Other Cells % Cancelled Nucleated RBC % Cancelled Absolute Neutrophils Cancelled Absolute Lymphocytes Cancelled Absolute Monocytes Cancelled Absolute Eosinophils Cancelled Absolute Basophils Cancelled RBC Morphology Cancelled Polychromasia Cancelled Hypochromasia Cancelled Poikilocytosis Cancelled Basophilic Stippling Cancelled Anisocytosis Cancelled Microcytosis Cancelled Macrocytosis Cancelled Spherocytes Cancelled Tear Drop Cells Cancelled Ovalocytes Cancelled Stomatocytes Cancelled [place] Bodies Cancelled [place] Cells/Echinocytes Cancelled Acanthocytes (Spur) Cancelled Schistocytes Cancelled Sodium Potassium Chloride Carbon Dioxide Anion Gap BUN Creatinine Estimated GFR/1.73 m2 Glucose Calcium Total Bilirubin AST ALT Alkaline Phosphatase Total Protein Albumin Lipase Urine Color Yellow Urine Clarity Cloudy Urine pH 6.5 Ur Specific [place] 1.015 Urine Protein Negative Urine Ketones Negative Urine Blood Trace-intact H Urine Nitrite Negative Urine Bilirubin Negative Urine Urobilinogen 1.0 H Ur Leukocyte Esterase Negative Urine RBC Not Applicable Urine WBC Not Applicable Ur Epithelial Cells Many Urine Crystals Not Applicable Urine Bacteria Packed Urine Mucus Not Applicable Ur Culture Indicated? No/Sq. Contamination Urine Glucose Negative COVID-19 Source SARS-CoV-2 (PCR) PAWSS Have you Been Recently Intoxicated or Drunk Within the Last 30 days?: No Have you Ever Experienced Previous Episodes of Alcohol Withdrawal?: No Have you ever Experienced Withdrawal Seizures?: No Have you ever Experienced Delirium Tremens(DT)s?: No Have you ever undergone Alcohol Rehabilitation Treatment (i.e, inpt ot outpatient treatment programs)?: No Have you ever Experienced Blackouts?: No Have you ever Combined Alcohol with other Downers within the last 90 days?: No Have you ever Combined Alcohol with any other Substance of Abuse during the last 90 days?: No Positive Blood Alcohol level on Presentation? [PCS.BAL]: No Evidence of Increased Autonomic Activity (i.e. HR>120, tremor, sweating, agitation, nausea)?: No Result: 0
[2021-11-26] MEDS: FLUoxetine 20 MG CAP PO (08:23)
[2021-11-26] MEDS: Loratidine 10 MG TAB PO (08:23)
[2021-11-26] MEDS: MORPHine 2 MG/ML SYR IVP (08:24)
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
[2021-11-26] MEDS: Methadone 10 MG TAB PO (12:39)
[2021-11-26] MEDS: Milk of Magnesia 30 ML CUP PO (12:44)
[2021-11-26 12:57] LABS: HCT 35.9 % (36.0-46.0); HGB 11.6 g/dL (11.2-15.7)
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
--- NOTE | 2021-11-26 15:36 | CHAPLAIN ---
Mony told me about her surgery to take her appendix out, and said she was still having some. She was discharged this afternoon.
--- NOTE | 2021-11-26 18:07 | PDOC.CMDIS ---
- If Service Date Differs Date of service: 11/26/21 Time of Service: 18:07 LACE Index Scoring Tool - Questions: Length of Stay (in days): 1 Acuity (Admit via E.D.?): Yes Comorbidities: Liver or Renal Disease E.D. Visits: 1 - Answers: Total Score: 10 Risk of Readmission: High Risk Care Management Discharge Reason for Hospitalization: appendicitis Discharge Plan: Mony will be discharged home with no new services. She will folllow up with her surgeon and PCP and plan of care and transport with family. Patient/Family Education Needs: Review discharge plan, medications, follow up plan, activity and discuss Ask Me Three
== END 2021-11-26 14:55 | disposition home or self-care (01) | DRG 337 ==
LOC: ER 21:01 → MS 11-26 10:49 → SUR 11-26 16:12 → ER 11-26 16:12 → MS 11-26 16:21
PROVIDERS: Admitting Provider Surgery; Emergency Provider Physician Assistant; PCP Family Medicine; Visit Provider Surgery
PROC: 0DTJ4ZZ Resection of Appendix, Percutaneous Endoscopic Approach (ICD-10-PCS; CPT 44970; principal; 2021-11-25 21:00)
DX: K35.80 Unspecified acute appendicitis (principal); G89.4 Chronic pain syndrome; E03.9 Hypothyroidism, unspecified; J45.909 Unspecified asthma, uncomplicated; G47.33 Obstructive sleep apnea (adult) (pediatric); F41.9 Anxiety disorder, unspecified; N18.9 Chronic kidney disease, unspecified; M54.6 Pain in thoracic spine; F32.A Depression, unspecified; K66.0 Peritoneal adhesions (postprocedural) (postinfection)
CPT/HCPCS: 44970; 58662; 36415; 80053; 83690; 85027; 87635; 93005; 96361; 96374; 96375; 96376; 99285; 74177; 81003; 81015; 85014; 85018; 85025; 88304; 93010; J0131; J1885; J1956; J2001; J2270; J2405; J2704; J3010; J3490

== ENCOUNTER 2021-12-25 01:17 | Outpatient (CLI) | payer MEDICAID, SELFPAY ==
--- NOTE | 2021-12-25 09:52 | DI.MAMMO_ITS ---
Exam(s) MAMMO SCREENING EXAM: MAMMO SCREENING CLINICAL HISTORY: screening,Z12.39. TECHNIQUE: Bilateral full field digital CC and MLO mammographic images were obtained with 3D tomosyn thesis and utilizing computer aided detection (CAD). COMPARISON: Prior mammograms were reviewed, the most recent being May 2020. FINDINGS: There are no CAD designations. There are no new spiculated masses nor malignant appearing microcalcification groups. There is no significant architectural distortion nor skin thickening-retraction. IMPRESSION: No radiographic evidence of malignancy. BI-RADS Category 1 - Negative Breast Density - Category A - Almost entirely fatty Breast density Category C or D implies that the patient has dense breast tissue. Dense breast tissue can make it harder to find cancer on a mammogram. Dense breast tissue is also associated with an incr eased risk of breast cancer. This information about the result of the mammogram report was provided to the patient to raise their awareness. Use this report when you speak with the patient about their risks for breast cancer, which includes their family history. At that time, you may recommend additional screening tests (Ultrasoun d or MRI) as these tests may add significant information. A negative radiographic report should not delay biopsy if a dominant or clinically suspicious mass is present. Up to ten percent of cancers are not identified on mammography. A negative report may reinforce clinical impression. Adenosis and dense breasts may obscure an underlying neoplasm. False positive reports average 6 to 10%. Patient will receive a letter notifying them of these results.
== END 2021-12-25 01:37 ==
PROVIDERS: PCP Family Medicine; Visit Provider Family Medicine
DX: Z12.31 Encounter for screening mammogram for malignant neoplasm of breast (principal)
CPT/HCPCS: 77063; 77067

== ENCOUNTER 2021-12-29 13:32 | Outpatient (REF) | payer MEDICAID, SELFPAY ==
[2021-12-29 17:02] LABS: *AMPHETAMINES SCREEN URINE Negative (Negative); *BARBITURATES SCREEN URINE Negative (Negative); *BENZODIAZEPINES SCREEN URINE Negative (Negative); Cannabinoids THC Negative (Negative); Cocaine Screen,Urine Negative (Negative); METHADONE URINE SCREEN Negative (Negative); OPIATES URINE SCREEN Negative (Negative)
[2021-12-29 17:03] LABS: Tricyclic Antidepressants Positive (Negative)
== END 2021-12-29 13:33 | disposition home or self-care (01) ==
LOC: LBN 13:32
PROVIDERS: PCP Family Medicine; Visit Provider Family Medicine
DX: G89.4 Chronic pain syndrome (principal)
CPT/HCPCS: 80307

== ENCOUNTER 2022-12-09 04:21 | Outpatient (CLI) | payer MEDICAID, SELFPAY ==
[2022-12-09 12:30] LABS: HCT 42.2 % (36.0-46.0); HGB 13.7 g/dL (11.2-15.7); MCH 29.6 pg (27.0-33.0); MCHC 32.5 % (32.0-36.0); MCV 91 fL (80-95); MPV 10.3 fL (8.0-11.0); Platelet Count 215 10^3/uL (130-400); RBC 4.63 10^6/uL (3.93-5.22); RDW-SD 40.1 fL; WBC 6.56 10^3/uL (4.4-10.8)
[2022-12-09 12:44] LABS: ALT 16 U/L (14-59); AST 13 U/L (15-37); Albumin 3.5 g/dL (3.4-5.0); Alkaline Phosphatase 79 U/L (46-116); Anion Gap 5.5 mmol/L (3-11); BUN 19 mg/dL (7-18); Bilirubin, Total 0.5 mg/dL (0.2-1.0); CO2 30.5 mmol/L (21.0-32.0); CREATININE 1.2 mg/dL (0.55-1.02); Chloride 105 mmol/L (98-107); Estimated GFR 52.14 (mL/min/1.73m2); Glucose 119 mg/dL (74-106); Potassium 4.1 mmol/L (3.5-5.1); Sodium 141 mmol/L (136-145); TSH (W/Ref FT4) 0.01 uIU/mL (0.36-3.74)
[2022-12-09 13:00] LABS: FREE T4 1.47 ng/dL (0.76-1.46)
== END 2022-12-09 04:22 | disposition home or self-care (01) ==
LOC: LOS 04:21
PROVIDERS: PCP Family Medicine; Visit Provider Family Medicine
DX: G89.4 Chronic pain syndrome (principal); N28.9 Disorder of kidney and ureter, unspecified; E03.9 Hypothyroidism, unspecified
CPT/HCPCS: 36415; 80053; 85027; 84439; 84443

== ENCOUNTER 2023-04-12 08:24 | Outpatient (CLI) | payer MEDICAID, SELFPAY ==
[2023-04-12 12:40] LABS: Iron 84 ug/dL (50-170)
[2023-04-12 12:58] LABS: ALT 17 U/L (14-59); AST 14 U/L (15-37); Albumin 3.5 g/dL (3.4-5.0); Alkaline Phosphatase 83 U/L (46-116); Anion Gap 7.3 mmol/L (3-11); BUN 18 mg/dL (7-18); Bilirubin, Total 0.5 mg/dL (0.2-1.0); CO2 29.7 mmol/L (21.0-32.0); CREATININE 1.2 mg/dL (0.55-1.02); Calcium 8.8 mg/dL (8.5-10.1); Calculated LDL 106 mg/dL (<100); Chloride 106 mmol/L (98-107); Cholesterol 184 mg/dL (<200); Estimated GFR 51.82 (mL/min/1.73m2); Ferritin 144 ng/mL (8-252); Glucose 105 mg/dL (74-106); HDL Cholesterol 51 mg/dL (40-60); Potassium 3.8 mmol/L (3.5-5.1); Sodium 143 mmol/L (136-145); TSH (W/Ref FT4) 3.25 uIU/mL (0.36-3.74); Total Protein 6.7 g/dL (6.4-8.2); Triglyceride 137 mg/dL (<150)
== END 2023-04-12 08:25 | disposition home or self-care (01) ==
LOC: LOS 08:25
PROVIDERS: PCP Family Medicine; Referring Provider Family Medicine; Visit Provider Family Medicine
DX: E03.9 Hypothyroidism, unspecified (principal); F32.89 Other specified depressive episodes; N18.9 Chronic kidney disease, unspecified; M54.6 Pain in thoracic spine; E66.3 Overweight
CPT/HCPCS: 36415; 80053; 80061; 82728; 83540; 84443

== ENCOUNTER 2023-04-13 01:24 | Outpatient (CLI) | payer MEDICAID, SELFPAY ==
--- NOTE | 2023-04-13 07:30 | DI.MAMMO_ITS ---
Exam(s) MAMMO SCREENING EXAM: MAMMO SCREENING CLINICAL HISTORY: screening, z12.39. TECHNIQUE: Bilateral full field digital CC and MLO mammographic images were obtained with 3D tomosyn thesis and utilizing computer aided detection (CAD). COMPARISON: Prior mammograms were reviewed. FINDINGS: There has been no significant change in the appearance and distribution of the fibroglandular tissue. There are no new spiculated masses nor malignant appearing microcalcification groups. Benign-appearing microcalcifications noted in the breast. There is no significant architectural distortion nor skin thickening-retraction. IMPRESSION: Benign findings. No radiographic evidence of malignancy. BI-RADS Category 2 - Benign Findings Breast Density - Category A - Almost entirely fatty Breast density Category C or D implies that the patient has dense breast tissue. Dense breast tissue can make it harder to find cancer on a mammogram. Dense breast tissue is also associated with an incr eased risk of breast cancer. This information about the result of the mammogram report was provided to the patient to raise their awareness. Use this report when you speak with the patient about their risks for breast cancer, which includes their family history. At that time, you may recommend additional screening tests (Ultrasoun d or MRI) as these tests may add significant information. A negative radiographic report should not delay biopsy if a dominant or clinically suspicious mass is present. Up to ten percent of cancers are not identified on mammography. A negative report may reinforce clinical impression. Adenosis and dense breasts may obscure an underlying neoplasm. False positive reports average 6 to 10%. Patient will receive a letter notifying them of these results.
== END 2023-04-13 01:44 ==
LOC: DI 01:25
PROVIDERS: PCP Family Medicine; Visit Provider Family Medicine
DX: Z12.31 Encounter for screening mammogram for malignant neoplasm of breast (principal)
CPT/HCPCS: 77063; 77067

== ENCOUNTER 2023-04-23 00:16 | Outpatient (CLI) | payer MEDICAID, SELFPAY ==
--- NOTE | 2023-04-23 10:20 | DI.DEXA_ITS ---
Exam(s) XR DEXA BONE DENSITY W/WO JOSELIN EXAM: XR DEXA BONE DENSITY W/WO JOSELIN CLINICAL HISTORY: post menopausal, SCREENING, Z78.0 TECHNIQUE: COMPARISON: No exams were available for comparison FINDINGS: Lateral Spine Image: Unremarkable. No compression deformities identified. Left hip: Total T-Score: 2.0 Total Z-Score: 3.0 T- and Z-scores: Within normal limits. Lumbar Spine: Total T-Score: 3.6 Total Z-Score: 5.0 T- and Z-scores: Within normal limits. IMPRESSION: No evidence of osteoporosis.
== END 2023-04-23 00:36 ==
LOC: DI 00:16
PROVIDERS: PCP Family Medicine; Visit Provider Family Medicine
DX: Z78.0 Asymptomatic menopausal state (principal); Z13.820 Encounter for screening for osteoporosis
CPT/HCPCS: 77080

== ENCOUNTER 2024-11-28 13:50 | Outpatient (CLI) | payer MEDICAID, SELFPAY ==
[2024-11-28 15:03] LABS: Abs Immature Grans 0.01 10^3/uL (0.0-0.06); Absolute Basophil Count 0.07 10^3/uL (0.0-0.2); Absolute Lymphocyte Count 2.11 10^3/uL (1.2-3.4); Absolute Monocyte Count 0.44 10^3/uL (0.1-0.8); Absolute Neutrophil Count 3.26 10^3/uL (1.2-6.7); Basophils % 1.1 %; Eosinophils % 3.3 %; HGB 13.4 g/dL (11.2-15.7); Immature Grans % 0.2 %; Lymphocytes % 34.6 %; MCH 30.9 pg (27.0-33.0); MCHC 34.4 % (32.0-36.0); MCV 90 fL (80-95); MPV 9.6 fL (8.0-11.0); Monocytes % 7.2 %; Neutrophils % 53.6 %; Platelet Count 244 10^3/uL (130-400); RBC 4.34 10^6/uL (3.93-5.22); RDW 12.8 % (11.7-14.6); RDW-SD 42.4 fL; WBC 6.09 10^3/uL (4.4-10.8)
[2024-11-28 15:23] LABS: Hemoglobin A1C 5.5 % (<5.7)
[2024-11-28 15:34] LABS: ALT 19 U/L (14-59); AST 15 U/L (15-37); Albumin 3.1 g/dL (3.4-5.0); Alkaline Phosphatase 87 U/L (46-116); Anion Gap 6.9 mmol/L (3-11); BUN 16 mg/dL (7-18); Bilirubin, Total 0.27 mg/dL (0.2-1.0); CO2 29.1 mmol/L (21.0-32.0); CREATININE 1.3 mg/dL (0.55-1.02); Calcium 9.1 mg/dL (8.5-10.1); Calculated LDL 86 mg/dL (<100); Chloride 105 mmol/L (98-107); Cholesterol 179 mg/dL (<200); Estimated GFR 46.78 (mL/min/1.73m2); Glucose 102 mg/dL (74-106); HDL Cholesterol 52 mg/dL (40-60); Potassium 3.6 mmol/L (3.5-5.1); Sodium 141 mmol/L (136-145); TSH (W/Ref FT4) 6.09 uIU/mL (0.36-3.74); Total Protein 6.8 g/dL (6.4-8.2); Triglyceride 205 mg/dL (<150)
[2024-11-28 15:53] LABS: FREE T4 1.01 ng/dL (0.76-1.46)
== END 2024-11-28 13:51 | disposition home or self-care (01) ==
LOC: LBO 13:52
PROVIDERS: PCP Family Medicine; Visit Provider Family Medicine
DX: E03.9 Hypothyroidism, unspecified (principal); Z00.00 Encounter for general adult medical examination without abnormal findings; I10 Essential (primary) hypertension; E11.9 Type 2 diabetes mellitus without complications; J06.9 Acute upper respiratory infection, unspecified
CPT/HCPCS: 36415; 80053; 80061; 83036; 84439; 84443; 85025

== ENCOUNTER 2025-01-23 09:36 | Outpatient (CLI) | payer MEDICAID, SELFPAY ==
--- NOTE | 2025-01-23 09:30 | DI.RAD_ITS ---
Exam(s) XR SHOULDER LT COMPLETE 2+V EXAM: XR SHOULDER LT COMPLETE 2+V CLINICAL HISTORY: neck and l shoulder pain, M54.12,M25.512. TECHNIQUE: 2D digital imaging was performed. Five views. COMPARISON: CR XR SHOULDER LT COMPLETE 2+V from 02/24/2021 FINDINGS: BONES: No acute fracture is present. No bony destructive lesion is seen. Spurring from the greater t uberosity. JOINTS: No dislocation present. Mild spurring at the AC joint and glenoid. Glenohumeral joint space is maintained. SOFT TISSUE: A calcification noted adjacent to the humeral head consistent with calcific tendinosis. IMPRESSION: Some mild degenerative changes. Calcific tendinosis. DATA REPOSITORY: RADIATION DOSE DELIVERED:
--- NOTE | 2025-01-23 09:30 | DI.RAD_ITS ---
Exam(s) XR CERVICAL SPINE COMP 4-5V EXAM: XR CERVICAL SPINE COMP 4-5V CLINICAL HISTORY: neck and l shoulder pain, M54.12,M25.512. TECHNIQUE: 2D digital imaging was performed. Five views were performed. COMPARISON: No exams were available for comparison FINDINGS: BONES: No fracture or destructive lesion. Vertebral bodies are unremarkable. Endplate osteophyte pr ojecting anteriorly at C5. Facet degenerative changes. No significant neural foraminal narrowing. DISKS: Intervertebral disc spaces are maintained. ALIGNMENT: Degenerative straightening of normal cervical lordosis. The odontoid and atlantoaxial art iculations are normal. SOFT TISSUE: There is a chronic calcification in the posterior soft tissues. The lung apices are adelita ar. IMPRESSION: Degenerative changes greatest of the facet joints. DATA REPOSITORY: RADIATION DOSE DELIVERED:
== END 2025-01-23 09:56 ==
LOC: DI 09:36
PROVIDERS: PCP Family Medicine; Visit Provider Family Medicine
DX: M54.12 Radiculopathy, cervical region (principal); M25.512 Pain in left shoulder
CPT/HCPCS: 72050; 73030

== ENCOUNTER 2025-03-14 02:11 | Outpatient (CLI) | payer MEDICAID, SELFPAY ==
--- NOTE | 2025-03-14 11:59 | DI.MAMMO_ITS ---
Exam(s) MAMMO SCREENING EXAM: MAMMO SCREENING CLINICAL HISTORY: screening,z12.39 TECHNIQUE: Bilateral full field digital CC and MLO mammographic images were obtained with 3D tomosyn thesis and utilizing computer aided detection (CAD). COMPARISON: Available for comparison. FINDINGS: Masses/Architectural Distortion: No suspicious masses or areas of architectural distortion are presen t. Microcalcifications: No suspicious pleomorphic-type are seen. Skin Thickening/Nipple Retraction: None. IMPRESSION: 1. No significant interval change with no specific features of malignancy noted. 2. Unless there is more urgent need, screening mammography is recommended, as per [place] guidelines. BI-RADS Category 1 - Negative Breast Density - Category A - The breast are almost entirely fatty. Breast density Category C or D implies that the patient has dense breast tissue. Dense breast tissue can make it harder to find cancer on a mammogram. Dense breast tissue is also associated with an incr eased risk of breast cancer. This information about the result of the mammogram report was provided to the patient to raise their awareness. Use this report when you speak with the patient about their risks for breast cancer, which includes their family history. At that time, you may recommend additional screening tests (Ultrasoun d or MRI) as these tests may add significant information. A negative radiographic report should not delay biopsy if a dominant or clinically suspicious mass is present. Up to ten percent of cancers are not identified on mammography. A negative report may reinforce clinical impression. Adenosis and dense breasts may obscure an underlying neoplasm. False positive reports average 6 to 10%. Patient will receive a letter notifying them of these results.
== END 2025-03-14 02:31 ==
LOC: DI 02:11
PROVIDERS: PCP Family Medicine; Visit Provider Family Medicine
DX: Z12.31 Encounter for screening mammogram for malignant neoplasm of breast (principal); R92.313 Mammographic fatty tissue density, bilateral breasts
CPT/HCPCS: 77063; 77067